=== PATIENT | female | born 1975 | race Caucasian/White ===

== ENCOUNTER → 2016-10-03 | Outpatient (CLI) | payer MEDICAID ==
[~2016-10-03] MED LIST: ALPRAZOLAM1 M3 PO; AUGMENTIN 875 M1 TAB PO; CELEXA20 MG PO; DIAZEPAM5 MG PO; FLEXERIL10 MG PO; HYDROCODONE-APA1 TA1 PO; IBU-8800 MG PO; MEDROL 4MG. DOSE4 MG PO; NORCO 325 MG-51 TAB PO; TYLENOL W/CODEI1 TA2 PO; ULTRAM 50 MG TA50 MG PO; VICODIN 5/500 T1 TAB PO; XANAX 0.5MG TA0.5 MG PO
--- NOTE | 2016-10-03 15:46 | RADIOLOGY REPORT PS360 ---
CT EXT.LOWER-RT-W/O CONTRAST INDICATION: TIBIAL PLATEAU FX, ORDERING PHYSICIAN: Parker Zuniga MD PATIENT AGE: 41 years COMPARISON: Radiograph of 09/06/2016 TECHNIQUE: Axial images are obtained without contrast. Sagittal and coronal reformatted images are reviewed as well. FINDINGS: There is a nondisplaced fracture involving the medial aspect of the lateral tibial plateau with a nondisplaced longitudinal fracture line noted at this area. A faint curvilinear sclerotic line is noted involving the proximal aspect of the lateral tibia which may be due to minimal impaction or healing of the fracture. No significant displacement of the lateral tibial plateau. No significant depression. There is some minimal cortical irregularity involving the medial aspect of lateral tibial plateau in its mid aspect. There is a small knee joint effusion. No significant arthritic changes are evident. IMPRESSION: Nondisplaced lateral tibial plateau fracture with knee joint effusion as detailed above
== END ==
LOC: RAD 09-28 13:00
DX: S82.141D Displaced bicondylar fracture of right tibia, subsequent encounter for closed fracture with routine healing (principal)